=== PATIENT | female | born 1965 | race African-American/Black ===

== ENCOUNTER 2017-11-19 14:21 | Emergency (ER) | payer MEDICAID ==
[~2017-11-19] VITALS: Ht 165.1 cm; Wt 73.0 kg
[2017-11-19] MEDS ORDERED: METHYLPREDNISOLONE SOD SUCC 125 MG/2 ML VIAL IV STA (14:55)
[2017-11-19] MEDS ORDERED: IPRATROPIUM BROMIDE (0.02%) 0.5MG/2.5ML NEB HHN STA (14:55)
[2017-11-19] MEDS ORDERED: ALBUTEROL (0.083%) 2.5MG/3ML NEB HHN STA (14:55)
[2017-11-19 17:46] VITALS: BP 147/80
== END 2017-11-19 17:49 | disposition home or self-care (01) ==
LOC: ER 15:45
DX: J45.909 Unspecified asthma, uncomplicated (principal)
CPT/HCPCS: 71045; 94640; 96374; 99284; J2930; J7611; Z7610

== ENCOUNTER 2017-12-02 08:38 | Emergency (ER) | payer MEDICAID ==
[~2017-12-02] VITALS: Ht 165.1 cm; Wt 91.0 kg
[2017-12-02] MEDS ORDERED: IPRATROPIUM BROMIDE (0.02%) 0.5MG/2.5ML NEB HHN STA (09:01)
[2017-12-02] MEDS ORDERED: ALBUTEROL (0.083%) 2.5MG/3ML NEB HHN STA (09:01)
[2017-12-02] MEDS ORDERED: METHYLPREDNISOLONE SOD SUCC 125 MG/2 ML VIAL IV STA (09:01)
[2017-12-02 09:35] LABS: CHLORIDE 108 mEq/L (98-107)
[2017-12-02 09:38] LABS: BASOPHILS % 0.3 % (0.0-2.0); EOSINOPHILS % 3.1 % (0.0-5.0); HEMOGLOBIN. 13.7 g/dL (12.0-16.0); LYMPHOCYTES % 22.8 % (20.0-50.0); MEAN CORPUSCULAR HEMOGLOBIN 30.8 pg (28.0-32.0); MEAN CORPUSCULAR VOLUME 94.4 fL (81.0-99.0); MEAN PLATELET VOLUME 9.7 fl (7.4-10.4); MONOCYTES % 12.3 % (2.0-8.0); NEUTROPHILS % 61.5 % (40.0-76.0); PLATELET 197 x1000/uL (130-400); RED BLOOD CELL COUNT 4.45 mill/uL (4.2-5.4)
[2017-12-02] MEDS ORDERED: MAGNESIUM 2 G PREMIX 50 ML IV STA (10:16)
[2017-12-02 13:04] VITALS: BP 127/76
== END 2017-12-02 13:09 | disposition home or self-care (01) ==
LOC: ER 10:15
DX: J45.901 Unspecified asthma with (acute) exacerbation (principal)
CPT/HCPCS: 36415; 71045; 80053; 83880; 85025; 93005; 94640; 96365; 96375; 99285; J2930; J3475; J7611; Z7610

== ENCOUNTER 2018-03-10 16:38 | Emergency (ER) | payer MEDICAID ==
[~2018-03-10] VITALS: Ht 170.2 cm; Wt 91.0 kg
[2018-03-10] MEDS ORDERED: PREDNISONE 20MG TABLET PO STA (20:22)
[2018-03-10] MEDS ORDERED: ALBUTEROL (0.083%) 2.5MG/3ML NEB HHN STA (20:22)
[2018-03-10] MEDS ORDERED: IPRATROPIUM BROMIDE (0.02%) 0.5MG/2.5ML NEB HHN STA (20:22)
[2018-03-10 21:49] VITALS: BP 135/82
== END 2018-03-10 21:53 | disposition home or self-care (01) ==
LOC: ER 16:38
DX: J45.901 Unspecified asthma with (acute) exacerbation (principal)
CPT/HCPCS: 93005; 94640; 99283; J7512; J7611; Z7610